=== PATIENT | male | born 1950 | race Caucasian/White ===

== ENCOUNTER 2017-01-27 17:56 | Emergency (ER) | payer MEDICARE ==
[~2017-01-27] VITALS: Ht 182.9 cm; Wt 225.0 kg
[2017-01-27 17:56] VITALS: BP 116/77; PULSE 102; RESP 20; O2SAT 96
--- NOTE | 2017-01-27 17:58 | ED.REPORT ---
HPI-Trauma Minor / Fall Date of Service Jan 27, 2017 ED Provider: Lars Marsh DO A 66 year old male with a history of high cholesterol is brought to the ED via EMS due to a fall. The pt had been out with his friends and consumed three to four beers. He was driven home by friends and while walking back to retrieve his vehicle, he tripped and fell. The pt hit his head but denies loss of consciousness, neck pain, abdominal pain, or any other complaints. He is unsure whether his tetanus shot is up to date. Nursing Notes Stated Complaint: GROUND LEVEL FALL Chief Complaint: Head, Face, Neck Trauma Nursing Notes Reviewed: Yes Allergies: Coded Allergies: No Known Allergies (Unverified , 01/27/17) General Time Seen by MD: 17:57 Chief Complaint Fall Hx Obtained From: Patient, EMS Arrived By: Ambulance Onset Occurred: 1 - 4 hours ago Recent Healthcare: No recent doctor visit, No recent hospitalization Similar Sx Previous: No Past Medical History Past Medical History high cholesterol Past Surgical History none reported Smoking History Unknown if Ever Smoker Ambulatory Status Independent Review of Systems Review of Systems Note: head pain Respiratory: Denies: Non-productive cough, Shortness of breath Musculoskeletal: Denies: Back pain, Neck pain Skin: Denies Rash Neurologic: Denies: Change LOC Complete sys rev & neg: except as marked. Cardiovascular: Denies: Chest pain GI: Denies: Abdominal pain Physical Exam Initial Vital Signs Vital Signs (First) Date Time Temp Pulse Resp B/P Pulse Ox O2 Delivery O2 Flow Rate FiO2 01/27/17 17:56 36.7 102 20 116/77 96 Room Air Initial VS: Reviewed General/Constitutional: Awake, Alert Neck: Atraumatic, Supple, Full range of motion no cervical spine tenderness Head / Eyes: Normocephalic, PERRL, EOMI right frontal abrasion ENT: Atraumatic, Airway patent, Mucous membranes moist Respiratory / Chest: Atraumatic, Breath sounds NL, Breath sounds = bilat, No respiratory distress Cardiovascular: Heart rate NL, Regular rhythm, Heart sounds NL Abdomen: Atraumatic, Soft, Non-tender Back: Atraumatic, Full range of motion Upper Extremity / MS: Atraumatic, Full range of motion Lower Extremity / Pelvis / MS: Atraumatic, Full range of motion Skin: Color NL, No rash, Warm, Dry Neurologic: Oriented X3, Speech NL, No motor deficits, No sensory deficits Psychiatric: Affect NL, Mood NL Interpretation & Diagnostics CT Head Interpretation IMPRESSION: No acute intracranial abnormality. Mild atrophic change. Dictated by: Alin Pisano M.D. on 01/27/2017 at 19:42 Approved by: Alin Pisano M.D. on 01/27/2017 at 19:44 Interpretation / Wet Read by: Interpret - Radiologist CT C-Spine Interpretation IMPRESSION: No acute bony abnormalities found in the cervical spine. Mid to lower cervical disc degenerative disease is present a moderate amount at C5-6 and C6-7. Dictated by: Alin Pisano M.D. on 01/27/2017 at 19:44 Approved by: Alin Pisano M.D. on 01/27/2017 at 19:47 Interpretation / Wet Read by: Interpret - Radiologist Re-Eval/Medical Decision Med Decision/Clinical Course Patient arrives clinically well-appearing but reportedly having drink alcohol. No obvious injuries can be identified other than the superficial frontal abrasion, CTs of the head and neck are reassuring. Patient is clinically sober and ambulatory with a steady gait, appropriate to make his own medical decisions. He will be discharged to home with a taxi. Return and follow-up precautions given. Source of Hx: EMS Re-Evaluation/Progress : Time of Eval: 20:11 Patient Status: Condition improved Re-Evaluation/Progress Note: Pt rechecked, who is comfortable. The diagnosis and plan for discharge are discussed. The pt understands and agrees with the plan. All questions are addressed at this time. Counseled Regarding: Diagnosis, Lab results, Need for follow-up, When/why to return to ED Discharge & Departure Impression: Primary Impression: Facial abrasion Encounter type: initial encounter Qualified Code: S00.81XA - Abrasion of other part of head, initial encounter Additional Impression: Fall Encounter type: initial encounter Qualified Code: W19.XXXA - Unspecified fall, initial encounter Disposition: Home Discharge Condition All VS Reviewed: Yes Condition: Stable Patient Instructions: Fall Prevention for Older Adults (ED) Additional Instructions: No obvious injuries are found, avoid excessive alcohol use. Follow-up with your primary care doctor as needed. Return to the ER as needed if worse. Referrals: [facility] Scribe Attestation Portions of this note were transcribed by Maddi Torres. I, Dr. Marsh personally performed the history, physical exam and medical decision-making; I reviewed and confirmed the accuracy of the information in the transcribed note. Signed by: Ana Mejia, 01/27/2017 and 2015. copies to: [facility] Lars Marsh DO Jan 27, 2017 17:58 MADDI TORRES Jan 27, 2017 18:07
[2017-01-27] MEDS ORDERED: TdaP Vaccine 0.5 mL Inj IM ONE (18:05)
--- NOTE | 2017-01-27 19:46 | DRSVH ---
PROCEDURE: CT BRAIN WITHOUT CONTRAST ([id number]) INDICATIONS: fall, intoxicated, frontal abrasions TECHNIQUE: Noncontrast 4.5 mm thick angled axial sections acquired from the foramen magnum to the vertex, with c oronal reformats. COMPARISON: None. FINDINGS: Image quality: Excellent. CSF spaces: Basal cisterns are patent. No extra-axial fluid collections. The ventricles are symmet harriet in size and shape. Brain: No intracranial bleeds or masses. There is cerebral volume loss for age, with resultant vent ricular and sulcal prominence. There are periventricular and deep white matter chronic small vessel ischemic changes. There is intracranial internal carotid artery atherosclerosis. Skull and face: Calvarium and visualized facial bones appear intact, without suspicious lesions. Sinuses: Visualized sinuses and mastoids are clear. IMPRESSION: No acute intracranial abnormality. Mild atrophic change. Dictated by: Alin Pisano M.D. on 01/27/2017 at 19:42 Approved by: Alin Pisano M.D. on 01/27/2017 at 19:44
--- NOTE | 2017-01-27 19:49 | DRSVH ---
PROCEDURE: CT CERVICAL SPINE WITHOUT CONTRAST ([id number]) INDICATIONS: fall, intoxicated, frontal abrasions TECHNIQUE: Noncontrast 3 mm thick sections acquired from the skull base to the T4 level. Sagittal and coronal r eformats were then constructed. For radiation dose reduction, the following was used: automated exp osure control, adjustment of mA and/or kV according to patient size. COMPARISON: None. FINDINGS: Image quality: Good Bones: No fractures or dislocations. Visualized superior ribs are intact. Soft tissues: Prevertebral soft tissues are normal in thickness. No paravertebral hematomas. No ap ical pneumothoraces. IMPRESSION: No acute bony abnormalities found in the cervical spine. Mid to lower cervical disc degen erative disease is present a moderate amount at C5-6 and C6-7. Dictated by: Alin Pisano M.D. on 01/27/2017 at 19:44 Approved by: Alin Pisano M.D. on 01/27/2017 at 19:47
[2017-01-27 20:29] VITALS: BP 122/72; PULSE 99; RESP 18; O2SAT 97
== END 2017-01-27 20:22 | disposition home or self-care (01) ==
LOC: SED 17:56
DX: S00.81XA Abrasion of other part of head, initial encounter (principal); W01.198A Fall on same level from slipping, tripping and stumbling with subsequent striking against other object, initial encounter; Y92.481 Parking lot as the place of occurrence of the external cause; Y93.01 Activity, walking, marching and hiking; Y99.8 Other external cause status; E78.00 Pure hypercholesterolemia, unspecified; F10.10 Alcohol abuse, uncomplicated; Z23 Encounter for immunization